=== PATIENT | female | born 1990 | race Hispanic/Latino ===

== ENCOUNTER → 2021-01-16 06:36 | Outpatient (CLI) | payer OTHER, SELFPAY ==
--- NOTE | 2021-01-16 | DI.MRI.S_ITS ---
PROCEDURE: MR LUMBAR SPINE WO CON INDICATIONS: Low back pain TECHNIQUE: Noncontrast sagittal T1 spin echo and T2 fast echo, sagittal STIR, axial T1 and T2 fast spin echo through the lumbar spine. In cases with scoliosis, additional coronal T2 fast spin echo may be performed. COMPARISON: None. FINDINGS: Image quality: Excellent. Alignment and Curvature: There is normal bony alignment. Bone Marrow: Marrow is of normal overall signal. No acute vertebral body compression fractures. Spinal Cord: Conus medullaris terminates at the normal level. Visualized cord demonstrates normal signal and size. Paraspinous Soft Tissues: No paravertebral masses. T12-L1: Normal appearance. L1-L2: Normal appearance. L2-L3: Normal appearance. L3-L4: Normal appearance. L4-L5: Disc desiccation and disc height loss. Circumferential disc bulge flattens the ventral thecal sac without mass effect upon the traversing L5 nerve roots. No neural foraminal stenosis. Mild facet hypertrophy. L5-S1: Disc desiccation and disc height loss. Diffuse disc bulge with a superimposed disc extrusion spanning the central, right paracentral, and right subarticular zones. The total volume of extruded disc material measures approximately 0.9 x 1.7 centimeters in maximum axial dimension and 1.3 centimeters craniocaudal. Extruded disc material significantly displaces and possibly impinges upon the descending right S1 nerve roots in the right subarticular zone (series 6, image 16). Foraminal components of the disc bulge contribute to trace neural foraminal stenosis. IMPRESSION: [id number] disc extrusion at L5-S1 producing suspected impingement of the right S1 nerve roots. Dictated by: Ed Ward M.D. on 01/16/2021 at 8:22 Approved by: Ed Ward M.D. on 01/16/2021 at 8:25
== END ==
PROVIDERS: PCP Nurse Practitioner Family; Referring Provider Nurse Practitioner Family; Visit Provider Nurse Practitioner Family
DX: M51.27 Other intervertebral disc displacement, lumbosacral region (principal)
CPT/HCPCS: 72148

== ENCOUNTER 2021-01-25 13:30 | Outpatient (RCR) | payer OTHER, SELFPAY ==
--- NOTE | 2020-11-23 16:00 | PT.OIE ---
Current Diagnoses Sciatica, unspecified side (11/23/20) Pelvic and perineal pain (11/23/20) Past Medical History (Last Updated 04/19/20 @ 16:25 by NATHANIEL Falcon) Anxiety GERD (gastroesophageal reflux disease) Obesity (BMI 30-39.9) (Unknown) Obstructive sleep apnea (~03/2020) Snoring (~2018) Tobacco use disorder Type 2 diabetes mellitus Visit Care Team Role Provider Type NATHANIEL Soto Attending Provider Non-Staff Primary Care Provider Referring Provider Specialty: [facility] Address: [address] [place] [address] GISELLEPRAVIN [place], [place], [facility] Email: Physical Therapy Initial Evaluation PT-OP-A Visit Information Start: 11/23/20 07:28 Freq: Status: Active Protocol: Document 11/23/20 09:00 AMB (Rec: 11/23/20 10:11 AMB [id number]) Out-Patient Physical Therapy Visit Information Visit Information Visit Type Initial Evaluation Visit Start Time 09:00 Visit Stop Time 09:45 Total Visit Minutes 45 Visit Number 1 PT-OP-B Current Condition Start: 11/23/20 07:28 Freq: Status: Active Protocol: Document 11/23/20 09:00 AMB (Rec: 11/23/20 09:29 AMB [id number]) Current Condition History of Current Condition Onset Date 17 months ago Current Complaints R sided sciatica History of Current Condition Pain started during beginning of second trimester- then put on bed rest due to pre-eclampsia- gotten worse since then. Chiropractor helps for a few days- standing up straight, picking up daughter, leaning over crib, extended sitting (driving) all increase the pain. Since the chiropractor pain is on the right side. Lots of weight gain during and had bariatric sleeve 4 months ago. Treatment Goals Patient/Caregiver Goals Reduce pain so she care for her daughter without pain Prior Functional Status Baseline Function- ADL's Independent Baseline Function- Mobility Independent Current Functional Impairments (Reported) Functional Limitations- ADL's Limited in bending forward due to pain, difficulty dressing daughter, putting her in her crib Personal Factors Other Personal Factors That May Effect Pt works from home (on couch/ Therapy/Recovery poor ergonomics), is in and gone a lot PT-OP-J Posture/Palpation/Skin Start: 11/23/20 07:28 Freq: Status: Active Protocol: Document 11/23/20 09:00 AMB (Rec: 11/26/20 15:39 AMB [email or web address]) Posture Evaluation Comments Posture Comments stands with genu recurvatum, posterior pelvic tilt PT-OP-K Range of Motion Start: 11/23/20 07:28 Freq: Status: Active Protocol: Document 11/23/20 09:00 AMB (Rec: 11/26/20 15:39 AMB [email or web address]) Lumbar Spine Range of Motion Lumbar Spine Active Degrees Testing Position Standing Flexion 30 Extension 25 Lateral Flexion Left 30 Lateral Flexion Right 30 ROM Limitations Pain PT-OP-M Strength Start: 11/23/20 07:28 Freq: Status: Active Protocol: Document 11/23/20 09:00 AMB (Rec: 11/26/20 15:39 AMB [email or web address]) Hip Strength Hip Manual Muscle Testing Right Flexion (L2) 4 Good Extension (S1) 4 Good Abduction 4 Good Adduction 4 Good Left Flexion (L2) 4 Good Extension (S1) 4 Good Abduction 4 Good Adduction 4 Good PT-OP-Q Treatments Start: 11/23/20 07:28 Freq: Status: Active Protocol: Document 11/23/20 09:00 AMB (Rec: 11/26/20 15:39 AMB [email or web address]) Therapeutic Exercises Supine Exercises 2 Supine Exercise Name piriformis stretch 1 Supine Exercise Name sciatic nerve glide Prone Exercises 1 Prone Exercise Name on forearms Comments decreases pain PT-OP-T Assessment and Plan Start: 11/23/20 07:28 Freq: Status: Active Protocol: Document 11/23/20 09:00 AMB (Rec: 11/30/20 09:11 AMB [email or web address]) Physical Therapy Assessment Rehab Potential Rehabilitation Potential Good Evaluation Complexity Number of Personal Factors/Comorbidities 1-2 Number of Body Systems Impaired 4 or More Clinical Presentation at Evaluation Evolving Impairments Impairments Functional Activities,Pain, Posture,Strength Goals Three Impairment Activity tolerance Short Term Goal (STG) Leanna will sit for one hour without an increase in baseline pain. STG Duration 4 weeks Assembler Dc Field Ring Goal (LTG) Leanna will molded goods spot picker her daughter from the floor without an increase in baseline pain. LTG Duration 8 weeks Two Impairment HEP Short Term Goal (STG) Leanna will be independent and consistent with her HEP for core stability and lumbar flexibility. STG Duration 4 weeks One Impairment ROM Short Term Goal (STG) Leanna will improve her lumbar ROM flexion to 50 degrees. STG Duration 4 weeks Assessment Summary Assessment Leanna attends PT with continued sciatica that developed during . Previous care associate helped, but the pain comes back. She has difficulty bending forward to care for her daughter, with limited lumbar flexion due to pain. She has poor posture with posterior pelvic tilt in standing, likely to help with stabilization but that continues to exacerbate her pain. She will benefit from core stabilization and gentle nerve mobilization to improve her range of motion so that she can take care of her daughter without pain. Physical Therapy Plan Frequency and Duration Frequency of Treatment 2x/Week Duration of Treatment 8 weeks Plan of Care Start Date 11/23/20 Plan of Care End Date 01/18/21 Therapeutic Interventions Therapeutic Interventions Home Exercise Program,Joint Mobilizations,Manual Therapy, Neuromuscular Re-education, Self-Care/Home Management, Therapeutic Activities, Therapeutic Exercises Modalities Cold Pack/Ice Massage,Electric Stimulation,Hot Packs Next Visit Focus/Plan Next Note Type Treatment Note Next Visit Plan Progress HEP- core stability- decreasing sciatic tension
--- NOTE | 2020-11-23 16:00 | PT.OPPOC ---
Physical, Occupational & Speech Therapy At [facility] Current Diagnoses Sciatica, unspecified side (11/23/20) Pelvic and perineal pain (11/23/20) Visit Care Team Role Provider Type NATHANIEL Soto Attending Provider Non-Staff Primary Care Provider Referring Provider Specialty: [facility] [place] [place], [facility] Email: Plan Of Care PT-OP-T Assessment and Plan Start: 11/23/20 07:28 Freq: Status: Active Protocol: Document 11/23/20 09:00 AMB (Rec: 11/30/20 09:11 AMB [email or web address]) Physical Therapy Assessment Rehab Potential Rehabilitation Potential Good Evaluation Complexity Number of Personal Factors/Comorbidities 1-2 Number of Body Systems Impaired 4 or More Clinical Presentation at Evaluation Evolving Impairments Impairments Functional Activities,Pain, Posture,Strength Goals Three Impairment Activity tolerance Short Term Goal (STG) Leanna will sit for one hour without an increase in baseline pain. STG Duration 4 weeks Shelter Goal (LTG) Leanna will flower picker her daughter from the floor without an increase in baseline pain. LTG Duration 8 weeks Two Impairment HEP Short Term Goal (STG) Leanna will be independent and consistent with her HEP for core stability and lumbar flexibility. STG Duration 4 weeks One Impairment ROM Short Term Goal (STG) Leanna will improve her lumbar ROM flexion to 50 degrees. STG Duration 4 weeks Assessment Summary Assessment Leanna attends PT with continued sciatica that developed during . Previous day care home provider helped, but the pain comes back. She has difficulty bending forward to care for her daughter, with limited lumbar flexion due to pain. She has poor posture with posterior pelvic tilt in standing, likely to help with stabilization but that continues to exacerbate her pain. She will benefit from core stabilization and gentle nerve mobilization to improve her range of motion so that she can take care of her daughter without pain. Physical Therapy Plan Frequency and Duration Frequency of Treatment 2x/Week Duration of Treatment 8 weeks Plan of Care Start Date 11/23/20 Plan of Care End Date 01/18/21 Therapeutic Interventions Therapeutic Interventions Home Exercise Program,Joint Mobilizations,Manual Therapy, Neuromuscular Re-education, Self-Care/Home Management, Therapeutic Activities, Therapeutic Exercises Modalities Cold Pack/Ice Massage,Electric Stimulation,Hot Packs Next Visit Focus/Plan Next Note Type Treatment Note Next Visit Plan Progress HEP- core stability- decreasing sciatic tension Plan of Care Dates Plan of Care Start Date 11/23/20 Plan of Care End Date 01/18/21 Electronically Signed by: Johana Araya, PT 11/30/20 0912 Please Sign and Return: I have reviewed this Plan of Care and certify that the skilled therapy services above are required to meet the patient?s needs. Physician Signature Date Printed Name and Credentials Clinical Instructor Signature Printed Name and Credentials
--- NOTE | 2020-12-16 11:44 | PT.OTN ---
Current Diagnoses Sciatica, unspecified side (12/16/20) Pelvic and perineal pain (12/16/20) Physical Therapy Treatment Note PT-OP-A Visit Information Start: 11/23/20 07:28 Freq: Status: Active Protocol: Document 12/16/20 09:00 AMB (Rec: 12/16/20 11:44 AMB [email or web address]) Out-Patient Physical Therapy Visit Information Visit Information Visit Type Treatment Note Visit Start Time 09:00 Visit Stop Time 09:45 Total Visit Minutes 45 Visit Number 2 PT-OP-B Current Condition Start: 11/23/20 07:28 Freq: Status: Active Protocol: Document 11/23/20 09:00 AMB (Rec: 11/23/20 09:29 AMB [id number]) Current Condition History of Current Condition Onset Date 17 months ago Current Complaints R sided sciatica History of Current Condition Pain started during beginning of second trimester- then put on bed rest due to pre-eclampsia- gotten worse since then. Chiropractor helps for a few days- standing up straight, picking up daughter, leaning over crib, extended sitting (driving) all increase the pain. Since the chiropractor pain is on the right side. Lots of weight gain during and had bariatric sleeve 4 months ago. Treatment Goals Patient/Caregiver Goals Reduce pain so she care for her daughter without pain Prior Functional Status Baseline Function- ADL's Independent Baseline Function- Mobility Independent Current Functional Impairments (Reported) Functional Limitations- ADL's Limited in bending forward due to pain, difficulty dressing daughter, putting her in her crib Personal Factors Other Personal Factors That May Effect Pt works from home (on couch/ Therapy/Recovery poor ergonomics), is in and gone a lot PT-OP-C Subjective Start: 11/23/20 07:28 Freq: Status: Active Protocol: Document 12/16/20 09:00 AMB (Rec: 12/16/20 11:44 AMB [email or web address]) OP-PT Subjective Patient Comments Patient Comments Pt has been doing her stretches, she started doing personal training at the gym. Does notice she has to be very careful with lunges and deep piriformis stretch. PT-OP-J Posture/Palpation/Skin Start: 11/23/20 07:28 Freq: Status: Active Protocol: Document 11/23/20 09:00 AMB (Rec: 11/26/20 15:39 AMB [email or web address]) Posture Evaluation Comments Posture Comments stands with genu recurvatum, posterior pelvic tilt PT-OP-K Range of Motion Start: 11/23/20 07:28 Freq: Status: Active Protocol: Document 11/23/20 09:00 AMB (Rec: 11/26/20 15:39 AMB [email or web address]) Lumbar Spine Range of Motion Lumbar Spine Active Degrees Testing Position Standing Flexion 30 Extension 25 Lateral Flexion Left 30 Lateral Flexion Right 30 ROM Limitations Pain PT-OP-M Strength Start: 11/23/20 07:28 Freq: Status: Active Protocol: Document 11/23/20 09:00 AMB (Rec: 11/26/20 15:39 AMB [email or web address]) Hip Strength Hip Manual Muscle Testing Right Flexion (L2) 4 Good Extension (S1) 4 Good Abduction 4 Good Adduction 4 Good Left Flexion (L2) 4 Good Extension (S1) 4 Good Abduction 4 Good Adduction 4 Good PT-OP-Q Treatments Start: 11/23/20 07:28 Freq: Status: Active Protocol: Document 12/16/20 09:00 AMB (Rec: 12/16/20 11:44 AMB [email or web address]) Gym Equipment Therapeutic Ball 1 Exercise Details 65cm Body Position Sitting Reps/Duration 10 min Comments march with TA, leg extension ( sciatic n glide), pelvic tilt Manual Therapy Treatment Soft Tissue Mobilization 1 Body Location R piriformis Mobilization Type Myofascial Release Intensity/Depth Moderate Body Position Sidelying PT-OP-T Assessment and Plan Start: 11/23/20 07:28 Freq: Status: Active Protocol: Document 12/16/20 09:00 AMB (Rec: 12/16/20 11:44 AMB [email or web address]) Physical Therapy Assessment Goals Three Impairment Activity tolerance Short Term Goal (STG) Leanna will sit for one hour without an increase in baseline pain. STG Duration 4 weeks Fdc Goal (LTG) Leanna will package pick up her daughter from the floor without an increase in baseline pain. LTG Duration 8 weeks Two Impairment HEP Short Term Goal (STG) Leanna will be independent and consistent with her HEP for core stability and lumbar flexibility. STG Duration 4 weeks One Impairment ROM Short Term Goal (STG) Leanna will improve her lumbar ROM flexion to 50 degrees. STG Duration 4 weeks Assessment Summary Assessment Leanna had foot numbness today which she states she hasn't previously noticed. Encouraged to be careful with personal training ok to go to the edge, but try not to do exercises that exacerbate pain /numbness. Physical Therapy Plan Next Visit Focus/Plan Next Visit Plan Reassess seated sciatic n glide (HEP), begin work on core stability.
--- NOTE | 2020-12-21 16:29 | PT.OTN ---
Current Diagnoses Sciatica, unspecified side (12/21/20) Pelvic and perineal pain (12/21/20) Physical Therapy Treatment Note PT-OP-A Visit Information Start: 11/23/20 07:28 Freq: Status: Active Protocol: Document 12/21/20 13:30 AMB (Rec: 12/21/20 14:15 AMB [id number]) Out-Patient Physical Therapy Visit Information Visit Information Visit Type Treatment Note Visit Start Time 13:30 Visit Stop Time 14:15 Total Visit Minutes 45 Visit Number 3 PT-OP-B Current Condition Start: 11/23/20 07:28 Freq: Status: Active Protocol: Document 11/23/20 09:00 AMB (Rec: 11/23/20 09:29 AMB [id number]) Current Condition History of Current Condition Onset Date 17 months ago Current Complaints R sided sciatica History of Current Condition Pain started during beginning of second trimester- then put on bed rest due to pre-eclampsia- gotten worse since then. Chiropractor helps for a few days- standing up straight, picking up daughter, leaning over crib, extended sitting (driving) all increase the pain. Since the chiropractor pain is on the right side. Lots of weight gain during and had bariatric sleeve 4 months ago. Treatment Goals Patient/Caregiver Goals Reduce pain so she care for her daughter without pain Prior Functional Status Baseline Function- ADL's Independent Baseline Function- Mobility Independent Current Functional Impairments (Reported) Functional Limitations- ADL's Limited in bending forward due to pain, difficulty dressing daughter, putting her in her crib Personal Factors Other Personal Factors That May Effect Pt works from home (on couch/ Therapy/Recovery poor ergonomics), is in and gone a lot PT-OP-C Subjective Start: 11/23/20 07:28 Freq: Status: Active Protocol: Document 12/21/20 13:30 AMB (Rec: 12/21/20 14:15 AMB [id number]) OP-PT Subjective Patient Comments Patient Comments Pt is continuing to feel foot numbness with hamstring stretch. PT-OP-J Posture/Palpation/Skin Start: 11/23/20 07:28 Freq: Status: Active Protocol: Document 11/23/20 09:00 AMB (Rec: 11/26/20 15:39 AMB [email or web address]) Posture Evaluation Comments Posture Comments stands with genu recurvatum, posterior pelvic tilt PT-OP-K Range of Motion Start: 11/23/20 07:28 Freq: Status: Active Protocol: Document 11/23/20 09:00 AMB (Rec: 11/26/20 15:39 AMB [email or web address]) Lumbar Spine Range of Motion Lumbar Spine Active Degrees Testing Position Standing Flexion 30 Extension 25 Lateral Flexion Left 30 Lateral Flexion Right 30 ROM Limitations Pain PT-OP-M Strength Start: 11/23/20 07:28 Freq: Status: Active Protocol: Document 11/23/20 09:00 AMB (Rec: 11/26/20 15:39 AMB [email or web address]) Hip Strength Hip Manual Muscle Testing Right Flexion (L2) 4 Good Extension (S1) 4 Good Abduction 4 Good Adduction 4 Good Left Flexion (L2) 4 Good Extension (S1) 4 Good Abduction 4 Good Adduction 4 Good PT-OP-Q Treatments Start: 11/23/20 07:28 Freq: Status: Active Protocol: Document 12/21/20 13:30 AMB (Rec: 12/21/20 16:28 AMB [id number]) Therapeutic Exercises Supine Exercises 4 Supine Exercise Name piriformis stretch Reps/Minutes 30x2 3 Supine Exercise Name double bent leg lift Reps/Minutes 10 Comments with TA 2 Supine Exercise Name SLR with TA 1 Supine Exercise Name hamstring contract relax- increased sx Sidelying Exercises 1 Sidelying Exercise Name hip abd Reps/Minutes 10 Comments added side plank no increased sx Other Exercises 1 Other Exercise Name cat cow Reps/Minutes 20 Manual Therapy Treatment Manual Techniques 1 Type R LE distraction PT-OP-T Assessment and Plan Start: 11/23/20 07:28 Freq: Status: Active Protocol: Document 12/21/20 13:30 AMB (Rec: 12/21/20 16:28 AMB [id number]) Physical Therapy Assessment Assessment Summary Assessment Pt continues to have R foot numbness with hamstring/ sciatic stretches. Working into spinal flexion in quadruped is ok, but also noted numbness in bilateral hands when waking up from sleeping that is new onset. Physical Therapy Plan Next Visit Focus/Plan Next Note Type Treatment Note Next Visit Plan Follow up on cat/cow
--- NOTE | 2021-01-04 14:21 | PT.OTN ---
Current Diagnoses Sciatica, unspecified side (01/04/21) Pelvic and perineal pain (01/04/21) Physical Therapy Treatment Note PT-OP-A Visit Information Start: 11/23/20 07:28 Freq: Status: Active Protocol: Document 01/04/21 13:30 AMB (Rec: 01/04/21 14:21 AMB [id number]) Out-Patient Physical Therapy Visit Information Visit Information Visit Type Treatment Note Visit Start Time 13:30 Visit Stop Time 14:15 Total Visit Minutes 45 Visit Number 4 PT-OP-B Current Condition Start: 11/23/20 07:28 Freq: Status: Active Protocol: Document 11/23/20 09:00 AMB (Rec: 11/23/20 09:29 AMB [id number]) Current Condition History of Current Condition Onset Date 17 months ago Current Complaints R sided sciatica History of Current Condition Pain started during beginning of second trimester- then put on bed rest due to pre-eclampsia- gotten worse since then. Chiropractor helps for a few days- standing up straight, picking up daughter, leaning over crib, extended sitting (driving) all increase the pain. Since the chiropractor pain is on the right side. Lots of weight gain during and had bariatric sleeve 4 months ago. Treatment Goals Patient/Caregiver Goals Reduce pain so she care for her daughter without pain Prior Functional Status Baseline Function- ADL's Independent Baseline Function- Mobility Independent Current Functional Impairments (Reported) Functional Limitations- ADL's Limited in bending forward due to pain, difficulty dressing daughter, putting her in her crib Personal Factors Other Personal Factors That May Effect Pt works from home (on couch/ Therapy/Recovery poor ergonomics), is in and gone a lot PT-OP-C Subjective Start: 11/23/20 07:28 Freq: Status: Active Protocol: Document 01/04/21 13:30 AMB (Rec: 01/04/21 14:21 AMB [id number]) OP-PT Subjective Patient Comments Patient Comments Pt is continuing to notice arm numbness, did have X-ray and is waiting for results, and waiting for scheduling for MRI . PT-OP-J Posture/Palpation/Skin Start: 11/23/20 07:28 Freq: Status: Active Protocol: Document 11/23/20 09:00 AMB (Rec: 11/26/20 15:39 AMB [email or web address]) Posture Evaluation Comments Posture Comments stands with genu recurvatum, posterior pelvic tilt PT-OP-K Range of Motion Start: 11/23/20 07:28 Freq: Status: Active Protocol: Document 11/23/20 09:00 AMB (Rec: 11/26/20 15:39 AMB [email or web address]) Lumbar Spine Range of Motion Lumbar Spine Active Degrees Testing Position Standing Flexion 30 Extension 25 Lateral Flexion Left 30 Lateral Flexion Right 30 ROM Limitations Pain PT-OP-M Strength Start: 11/23/20 07:28 Freq: Status: Active Protocol: Document 11/23/20 09:00 AMB (Rec: 11/26/20 15:39 AMB [email or web address]) Hip Strength Hip Manual Muscle Testing Right Flexion (L2) 4 Good Extension (S1) 4 Good Abduction 4 Good Adduction 4 Good Left Flexion (L2) 4 Good Extension (S1) 4 Good Abduction 4 Good Adduction 4 Good PT-OP-Q Treatments Start: 11/23/20 07:28 Freq: Status: Active Protocol: Document 01/04/21 13:30 AMB (Rec: 01/04/21 14:21 AMB [id number]) Therapeutic Exercises Supine Exercises 4 Supine Exercise Name piriformis stretch Reps/Minutes 30x2 2 Supine Exercise Name SLR with TA Sidelying Exercises 1 Sidelying Exercise Name hip abd Reps/Minutes 10 Comments increased numbness Other Exercises 2 Other Exercise Name bird dog Reps/Minutes 20 1 Other Exercise Name cat cow Reps/Minutes 20 Manual Therapy Treatment Soft Tissue Mobilization 1 Body Location R piriformis. lumbar paraspinals Mobilization Type Myofascial Release Intensity/Depth Moderate Body Position Sidelying PT-OP-T Assessment and Plan Start: 11/23/20 07:28 Freq: Status: Active Protocol: Document 01/04/21 13:30 AMB (Rec: 01/04/21 14:21 AMB [id number]) Physical Therapy Assessment Assessment Summary Assessment Pt showed significantly more numbness at today's visit. Exercises that did not previously cause numbness did so today. Encouarged to avoid lifts at the gym and to follow up with MD. Physical Therapy Plan Next Visit Focus/Plan Next Note Type Treatment Note Next Visit Plan Follow up on upcoming imaging
--- NOTE | 2021-01-11 11:02 | PT.OTN ---
Current Diagnoses Sciatica, unspecified side (01/11/21) Pelvic and perineal pain (01/11/21) Physical Therapy Treatment Note PT-OP-A Visit Information Start: 11/23/20 07:28 Freq: Status: Active Protocol: Document 01/11/21 09:00 AMB (Rec: 01/11/21 11:00 AMB [id number]) Out-Patient Physical Therapy Visit Information Visit Information Visit Type Treatment Note Visit Note pt arrived 10 min late Visit Start Time 09:10 Visit Stop Time 09:40 Total Visit Minutes 35 Visit Number 5 PT-OP-B Current Condition Start: 11/23/20 07:28 Freq: Status: Active Protocol: Document 11/23/20 09:00 AMB (Rec: 11/23/20 09:29 AMB [id number]) Current Condition History of Current Condition Onset Date 17 months ago Current Complaints R sided sciatica History of Current Condition Pain started during beginning of second trimester- then put on bed rest due to pre-eclampsia- gotten worse since then. Chiropractor helps for a few days- standing up straight, picking up daughter, leaning over crib, extended sitting (driving) all increase the pain. Since the chiropractor pain is on the right side. Lots of weight gain during and had bariatric sleeve 4 months ago. Treatment Goals Patient/Caregiver Goals Reduce pain so she care for her daughter without pain Prior Functional Status Baseline Function- ADL's Independent Baseline Function- Mobility Independent Current Functional Impairments (Reported) Functional Limitations- ADL's Limited in bending forward due to pain, difficulty dressing daughter, putting her in her crib Personal Factors Other Personal Factors That May Effect Pt works from home (on couch/ Therapy/Recovery poor ergonomics), is in and gone a lot PT-OP-C Subjective Start: 11/23/20 07:28 Freq: Status: Active Protocol: Document 01/11/21 11:01 AMB (Rec: 01/11/21 11:02 AMB [id number]) OP-PT Subjective Patient Comments Patient Comments Pt had Xray per her report it showed mild disc degeneration, MRI scheduled for next week. PT-OP-J Posture/Palpation/Skin Start: 11/23/20 07:28 Freq: Status: Active Protocol: Document 11/23/20 09:00 AMB (Rec: 11/26/20 15:39 AMB [email or web address]) Posture Evaluation Comments Posture Comments stands with genu recurvatum, posterior pelvic tilt PT-OP-K Range of Motion Start: 11/23/20 07:28 Freq: Status: Active Protocol: Document 11/23/20 09:00 AMB (Rec: 11/26/20 15:39 AMB [email or web address]) Lumbar Spine Range of Motion Lumbar Spine Active Degrees Testing Position Standing Flexion 30 Extension 25 Lateral Flexion Left 30 Lateral Flexion Right 30 ROM Limitations Pain PT-OP-M Strength Start: 11/23/20 07:28 Freq: Status: Active Protocol: Document 11/23/20 09:00 AMB (Rec: 11/26/20 15:39 AMB [email or web address]) Hip Strength Hip Manual Muscle Testing Right Flexion (L2) 4 Good Extension (S1) 4 Good Abduction 4 Good Adduction 4 Good Left Flexion (L2) 4 Good Extension (S1) 4 Good Abduction 4 Good Adduction 4 Good PT-OP-Q Treatments Start: 11/23/20 07:28 Freq: Status: Active Protocol: Document 01/11/21 11:01 AMB (Rec: 01/11/21 11:02 AMB [id number]) Therapeutic Exercises Supine Exercises 4 Supine Exercise Name piriformis stretch Reps/Minutes 30x2 3 Supine Exercise Name double bent leg lift Reps/Minutes 10 Comments with TA 2 Supine Exercise Name SLR with TA Manual Therapy Treatment Soft Tissue Mobilization 1 Body Location R piriformis. lumbar paraspinals Mobilization Type Myofascial Release Intensity/Depth Moderate Body Position Sidelying Manual Traction Lumbar Body Position Hooklying Comments relieves sx, but can get numb if leg outside of neutral PT-OP-T Assessment and Plan Start: 11/23/20 07:28 Freq: Status: Active Protocol: Document 01/11/21 09:00 AMB (Rec: 01/11/21 11:00 AMB [id number]) Physical Therapy Assessment Assessment Summary Assessment Pt continues to have numbness with hip flexion and extension Physical Therapy Plan Next Visit Focus/Plan Next Note Type Treatment Note Next Visit Plan Follow up on upcoming imaging
--- NOTE | 2021-01-18 16:01 | PT.OTN ---
Current Diagnoses Sciatica, unspecified side (01/18/21) Pelvic and perineal pain (01/18/21) Physical Therapy Treatment Note PT-OP-A Visit Information Start: 11/23/20 07:28 Freq: Status: Active Protocol: Document 01/18/21 13:30 AMB (Rec: 01/18/21 16:01 AMB [email or web address]) Out-Patient Physical Therapy Visit Information Visit Information Visit Type Treatment Note Visit Note pt 15 min late Visit Start Time 13:45 Visit Stop Time 14:15 Total Visit Minutes 30 Visit Number 6 PT-OP-B Current Condition Start: 11/23/20 07:28 Freq: Status: Active Protocol: Document 11/23/20 09:00 AMB (Rec: 11/23/20 09:29 AMB [id number]) Current Condition History of Current Condition Onset Date 17 months ago Current Complaints R sided sciatica History of Current Condition Pain started during beginning of second trimester- then put on bed rest due to pre-eclampsia- gotten worse since then. Chiropractor helps for a few days- standing up straight, picking up daughter, leaning over crib, extended sitting (driving) all increase the pain. Since the chiropractor pain is on the right side. Lots of weight gain during and had bariatric sleeve 4 months ago. Treatment Goals Patient/Caregiver Goals Reduce pain so she care for her daughter without pain Prior Functional Status Baseline Function- ADL's Independent Baseline Function- Mobility Independent Current Functional Impairments (Reported) Functional Limitations- ADL's Limited in bending forward due to pain, difficulty dressing daughter, putting her in her crib Personal Factors Other Personal Factors That May Effect Pt works from home (on couch/ Therapy/Recovery poor ergonomics), is in and gone a lot PT-OP-C Subjective Start: 11/23/20 07:28 Freq: Status: Active Protocol: Document 01/18/21 13:30 AMB (Rec: 01/18/21 16:01 AMB [email or web address]) OP-PT Subjective Patient Comments Patient Comments Pt got MRI results from this morning and comes in with questions regarding the plan, re: surgery, continuing exercise to meet her weight loss golas without injuring her back further. PT-OP-J Posture/Palpation/Skin Start: 11/23/20 07:28 Freq: Status: Active Protocol: Document 11/23/20 09:00 AMB (Rec: 11/26/20 15:39 AMB [email or web address]) Posture Evaluation Comments Posture Comments stands with genu recurvatum, posterior pelvic tilt PT-OP-K Range of Motion Start: 11/23/20 07:28 Freq: Status: Active Protocol: Document 11/23/20 09:00 AMB (Rec: 11/26/20 15:39 AMB [email or web address]) Lumbar Spine Range of Motion Lumbar Spine Active Degrees Testing Position Standing Flexion 30 Extension 25 Lateral Flexion Left 30 Lateral Flexion Right 30 ROM Limitations Pain PT-OP-M Strength Start: 11/23/20 07:28 Freq: Status: Active Protocol: Document 11/23/20 09:00 AMB (Rec: 11/26/20 15:39 AMB [email or web address]) Hip Strength Hip Manual Muscle Testing Right Flexion (L2) 4 Good Extension (S1) 4 Good Abduction 4 Good Adduction 4 Good Left Flexion (L2) 4 Good Extension (S1) 4 Good Abduction 4 Good Adduction 4 Good PT-OP-Q Treatments Start: 11/23/20 07:28 Freq: Status: Active Protocol: Document 01/18/21 13:30 AMB (Rec: 01/18/21 16:01 AMB [email or web address]) Self-Care/Home Management Treatment Education Other Education Extensive discussion of surgical/exercise options, considerations of surgery in that likely she would need help with childcare to avoid bend/lift/twist post surgery. Reassured pt to continue with cardio, but keep spine in neutral for now, avoiding flexion activities. PT-OP-T Assessment and Plan Start: 11/23/20 07:28 Freq: Status: Active Protocol: Document 01/18/21 13:30 AMB (Rec: 01/18/21 16:01 AMB [email or web address]) Physical Therapy Assessment Assessment Summary Assessment Pt tearful over MRI results, not being able to exercise, childcare after a possible surgery. Encouraged pt to follow up with orthopedics, pause the personal banking assistant for now, and just focus on cardio and gentle core progression. Physical Therapy Plan Next Visit Focus/Plan Next Visit Plan Consider d/c if pt pursuing surgery, plan on giving specifics of exercises she can do for HEP
--- NOTE | 2021-01-25 15:00 | PT.OTN ---
Current Diagnoses Sciatica, unspecified side (01/25/21) Pelvic and perineal pain (01/25/21) Physical Therapy Treatment Note PT-OP-A Visit Information Start: 11/23/20 07:28 Freq: Status: Active Protocol: Document 01/25/21 13:30 AMB (Rec: 02/19/21 08:21 AMB [email or web address]) Out-Patient Physical Therapy Visit Information Visit Information Visit Type Treatment Note Visit Start Time 13:30 Visit Stop Time 14:15 Total Visit Minutes 45 Visit Number 7 PT-OP-B Current Condition Start: 11/23/20 07:28 Freq: Status: Active Protocol: Document 11/23/20 09:00 AMB (Rec: 11/23/20 09:29 AMB [id number]) Current Condition History of Current Condition Onset Date 17 months ago Current Complaints R sided sciatica History of Current Condition Pain started during beginning of second trimester- then put on bed rest due to pre-eclampsia- gotten worse since then. Chiropractor helps for a few days- standing up straight, picking up daughter, leaning over crib, extended sitting (driving) all increase the pain. Since the chiropractor pain is on the right side. Lots of weight gain during and had bariatric sleeve 4 months ago. Treatment Goals Patient/Caregiver Goals Reduce pain so she care for her daughter without pain Prior Functional Status Baseline Function- ADL's Independent Baseline Function- Mobility Independent Current Functional Impairments (Reported) Functional Limitations- ADL's Limited in bending forward due to pain, difficulty dressing daughter, putting her in her crib Personal Factors Other Personal Factors That May Effect Pt works from home (on couch/ Therapy/Recovery poor ergonomics), is in and gone a lot PT-OP-C Subjective Start: 11/23/20 07:28 Freq: Status: Active Protocol: Document 01/25/21 13:30 AMB (Rec: 02/19/21 08:21 AMB [email or web address]) OP-PT Subjective Patient Comments Patient Comments Pt is considering surgery vs injections and since she has had little improvement in PT she is ready to be discharged, but instead of being discharged would prefer to be put on hold for a month. PT-OP-J Posture/Palpation/Skin Start: 11/23/20 07:28 Freq: Status: Active Protocol: Document 11/23/20 09:00 AMB (Rec: 11/26/20 15:39 AMB [email or web address]) Posture Evaluation Comments Posture Comments stands with genu recurvatum, posterior pelvic tilt PT-OP-K Range of Motion Start: 11/23/20 07:28 Freq: Status: Active Protocol: Document 11/23/20 09:00 AMB (Rec: 11/26/20 15:39 AMB [email or web address]) Lumbar Spine Range of Motion Lumbar Spine Active Degrees Testing Position Standing Flexion 30 Extension 25 Lateral Flexion Left 30 Lateral Flexion Right 30 ROM Limitations Pain PT-OP-M Strength Start: 11/23/20 07:28 Freq: Status: Active Protocol: Document 11/23/20 09:00 AMB (Rec: 11/26/20 15:39 AMB [email or web address]) Hip Strength Hip Manual Muscle Testing Right Flexion (L2) 4 Good Extension (S1) 4 Good Abduction 4 Good Adduction 4 Good Left Flexion (L2) 4 Good Extension (S1) 4 Good Abduction 4 Good Adduction 4 Good PT-OP-Q Treatments Start: 11/23/20 07:28 Freq: Status: Active Protocol: Document 01/25/21 13:30 AMB (Rec: 02/19/21 08:21 AMB [email or web address]) Therapeutic Exercises Supine Exercises 4 Supine Exercise Name piriformis stretch Reps/Minutes 30x2 2 Supine Exercise Name SLR with TA Reps/Minutes 10 Prone Exercises 1 Prone Exercise Name prone press up Comments difficult with UE numbness Sidelying Exercises 1 Sidelying Exercise Name hip abd SLR Reps/Minutes 10 Self-Care/Home Management Treatment Education Other Education Extensive education re the role of cervical spine and UE numbness, surgery vs injections, planning for help with her daughter after surgery to avoid BLT. PT-OP-T Assessment and Plan Start: 11/23/20 07:28 Freq: Status: Active Protocol: Document 01/25/21 13:30 AMB (Rec: 01/25/21 14:14 AMB [id number]) Physical Therapy Assessment Goals Three Impairment Activity tolerance Short Term Goal (STG) Leanna will sit for one hour without an increase in baseline pain. STG Duration NOT MET Signals Analyst Goal (LTG) Leanna will brass pickler her daughter from the floor without an increase in baseline pain. LTG Duration NOT MET Two Impairment HEP Short Term Goal (STG) Leanna will be independent and consistent with her HEP for core stability and lumbar flexibility. STG Duration NoT MET One Impairment ROM Short Term Goal (STG) Leanna will improve her lumbar ROM flexion to 50 degrees. STG Duration NOT MET Assessment Summary Assessment Leanna's symptoms worsened while in physical therapy, so she was encouraged to return to PCP who elected MRI and found a large disc herniation impinging upon a nerve root. Leanna needed further education on surgery vs injections vs continued conservative management, education regarding body mechanics and taking care of her daughter, and education regarding her continued weight loss goals (she had been working with a equestrian trainer fairly [place] and that increased her symptoms considerably). Since she will be pursuing surgery vs injections we will put her case on hold for one month and then discharge if she does not have further need for physical therapy. Physical Therapy Plan Discharge Physical Therapy Discharge Reasons Plateau in Progress
--- NOTE | 2021-02-26 11:49 | PT.OPDS ---
Current Diagnoses Sciatica, unspecified side (01/25/21) Pelvic and perineal pain (01/25/21) Visit Care Team Role Provider Type NATHANIEL Soto Attending Provider Non-Staff Primary Care Provider Referring Provider Specialty: Family Practice Address: [facility] [address] , [place], [address] Email: Visit Number Visit Number 7 Discharge Summary PT-OP-B Current Condition Start: 11/23/20 07:28 Freq: Status: Active Protocol: Document 11/23/20 09:00 AMB (Rec: 11/23/20 09:29 AMB [id number]) Current Condition History of Current Condition Onset Date 17 months ago Current Complaints R sided sciatica History of Current Condition Pain started during beginning of second trimester- then put on bed rest due to pre-eclampsia- gotten worse since then. Chiropractor helps for a few days- standing up straight, picking up daughter, leaning over crib, extended sitting (driving) all increase the pain. Since the chiropractor pain is on the right side. Lots of weight gain during and had bariatric sleeve 4 months ago. Treatment Goals Patient/Caregiver Goals Reduce pain so she care for her daughter without pain Prior Functional Status Baseline Function- ADL's Independent Baseline Function- Mobility Independent Current Functional Impairments (Reported) Functional Limitations- ADL's Limited in bending forward due to pain, difficulty dressing daughter, putting her in her crib Personal Factors Other Personal Factors That May Effect Pt works from home (on couch/ Therapy/Recovery poor ergonomics), is in and gone a lot PT-OP-C Subjective Start: 11/23/20 07:28 Freq: Status: Active Protocol: Document 01/25/21 13:30 AMB (Rec: 02/19/21 08:21 AMB [email or web address]) OP-PT Subjective Patient Comments Patient Comments Pt is considering surgery vs injections and since she has had little improvement in PT she is ready to be discharged, but instead of being discharged would prefer to be put on hold for a month. PT-OP-J Posture/Palpation/Skin Start: 11/23/20 07:28 Freq: Status: Active Protocol: Document 11/23/20 09:00 AMB (Rec: 11/26/20 15:39 AMB [email or web address]) Posture Evaluation Comments Posture Comments stands with genu recurvatum, posterior pelvic tilt PT-OP-K Range of Motion Start: 11/23/20 07:28 Freq: Status: Active Protocol: Document 11/23/20 09:00 AMB (Rec: 11/26/20 15:39 AMB [email or web address]) Lumbar Spine Range of Motion Lumbar Spine Active Degrees Testing Position Standing Flexion 30 Extension 25 Lateral Flexion Left 30 Lateral Flexion Right 30 ROM Limitations Pain PT-OP-M Strength Start: 11/23/20 07:28 Freq: Status: Active Protocol: Document 11/23/20 09:00 AMB (Rec: 11/26/20 15:39 AMB [email or web address]) Hip Strength Hip Manual Muscle Testing Right Flexion (L2) 4 Good Extension (S1) 4 Good Abduction 4 Good Adduction 4 Good Left Flexion (L2) 4 Good Extension (S1) 4 Good Abduction 4 Good Adduction 4 Good PT-OP-T Assessment and Plan Start: 11/23/20 07:28 Freq: Status: Active Protocol: Document 02/26/21 11:48 AMB (Rec: 02/26/21 11:48 AMB [email or web address]) Physical Therapy Assessment Assessment Summary Assessment Pt was placed on hold for one month and has not returned to the clinic in that time, therefore she is discharged. At her last visit she was considering injections vs surgery, as unfortunately her numbness had progressed instead of improved with physical therapy.
== END 2021-03-01 13:36 | disposition home or self-care (01) ==
LOC: PHYS 13:30
PROVIDERS: PCP Nurse Practitioner Family; Referring Provider Nurse Practitioner Family; Visit Provider Nurse Practitioner Family
DX: R10.2 Pelvic and perineal pain (principal); M54.30 Sciatica, unspecified side
CPT/HCPCS: 97110; 97140; 97162; 97535

== ENCOUNTER → 2021-02-02 06:50 | Outpatient (CLI) | payer OTHER, SELFPAY ==
--- NOTE | 2021-02-02 | DI.MRI.S_ITS ---
PROCEDURE: MR CERVICAL SPINE WO CON INDICATIONS: Cervicalgia TECHNIQUE: Noncontrast sagittal T1 spin echo and T2 fast spin echo, sagittal STIR, foraminal oblique sagittal T2 fast spin echo, and axial gradient echo or T2 fast spin echo through the cervical spine. COMPARISON: None. FINDINGS: Image quality: Excellent. Alignment and Curvature: There is loss of normal cervical lordosis, and otherwise normal bony alignment. Bone Marrow: Marrow demonstrates normal overall signal. Minimal reactive signal within the endplates adjacent to the C5-C6 and C6-C7 intervertebral discs. Spinal Cord: Visualized spinal cord has normal size and signal. No cerebellar tonsillar herniation. Paraspinous Soft Tissues: No paravertebral masses. Prevertebral soft tissues are normal in thickness. C2-C3: Normal appearance. C3-C4: Mild facet and uncovertebral hypertrophy bilaterally. No significant canal stenosis. Mild bilateral foraminal stenosis. C4-C5: Mild facet and uncovertebral hypertrophy bilaterally. No canal stenosis. Mild bilateral foraminal stenosis. C5-C6: Normal appearance. C6-C7: Mild disc desiccation and diffuse disc bulge. Mild facet and uncovertebral hypertrophy bilaterally. Mild canal stenosis. Mild right and moderate left foraminal stenosis. C7-T1: Normal appearance. IMPRESSION: 1. Multilevel degenerative disc and facet disease, as well as uncovertebral hypertrophy. 2. Mild multilevel canal stenosis. 3. Multilevel foraminal stenoses, worst at C6-C7 on the left where there is moderate foraminal stenosis. Dictated by: Phyllis Sarabia M.D. on 02/02/2021 at 8:33 Approved by: Phyllis Sarabia M.D. on 02/02/2021 at 8:38
== END ==
PROVIDERS: PCP Nurse Practitioner Family; Referring Provider Nurse Practitioner Family; Visit Provider Family Medicine
DX: M50.323 Other cervical disc degeneration at C6-C7 level (principal); M48.02 Spinal stenosis, cervical region
CPT/HCPCS: 72141

== ENCOUNTER → 2021-07-18 15:38 | Outpatient (CLI) | payer OTHER, SELFPAY ==
--- NOTE | 2021-07-18 | DI.MRI.S_ITS ---
PROCEDURE: MR CERVICAL SPINE WO CON INDICATIONS: LEFT GREATER THAN RIGHT ARM NUMBNESS AND WEAKNESS TECHNIQUE: Noncontrast sagittal T1 spin echo and T2 fast spin echo, sagittal STIR, foraminal oblique sagittal T2 fast spin echo, and axial gradient echo or T2 fast spin echo through the cervical spine. COMPARISON: [facility], MR, MR LUMBAR SPINE WO/W CON, 07/18/2021, 15:53. [facility], MR, MR CERVICAL SPINE WO CON, 02/02/2021, 7:37. FINDINGS: Image quality: Diagnostic, with note made of motion artifact. Alignment and Curvature: There is overall straightening of the normal cervical lordosis. No focal AP alignment abnormality is seen. Bone Marrow: Marrow demonstrates normal overall signal. Spinal Cord: Visualized spinal cord has normal size and signal. No cerebellar tonsillar herniation. Paraspinous Soft Tissues: No paravertebral masses. Prevertebral soft tissues are normal in thickness. C2-C3: Normal appearance. C3-C4: The disc height and disk signal are well-preserved. A mild degree of generalized disc osteophyte complex is seen. Mild to moderate facet hypertrophy is seen. There is moderate left-sided and no significant right-sided neural foraminal narrowing seen. The central canal is widely patent. When comparison is made with the prior images, these findings are similar. C4-C5: The disc height and disk signal are well-preserved. Moderate facet joint hypertrophy is seen. There is moderate left-sided and no right-sided neural foraminal narrowing seen. No central canal narrowing is seen. Stable from the prior study. C5-C6: No significant abnormality is seen. C6-C7: The disc height and disc signal are relatively well preserved. Moderate generalized disc osteophyte complex is seen. Mild facet joint hypertrophy is seen. Moderate bilateral neural foraminal narrowing can be seen, right worse than left. Mild central canal narrowing is seen. When comparison is made with the prior images, these findings are similar. C7-T1: No significant abnormality is seen. IMPRESSION: Multiple levels of premature cervical spine degenerative change are seen, which are worst at the C6-C7 level. The degenerative changes are similar to prior MRI. Dictated by: Keenan Bajwa M.D. on 07/18/2021 at 16:10 Approved by: Keenan Bajwa M.D. on 07/18/2021 at 16:14
--- NOTE | 2021-07-18 | DI.MRI.S_ITS ---
PROCEDURE: MR LUMBAR SPINE WO/W CON INDICATIONS: Other specified postprocedural states TECHNIQUE: Noncontrast sagittal T1 spin echo and T2 fast spin echo, sagittal STIR, axial T1 and T2 fast spin echo through the lumbar spine. In cases with scoliosis, additional coronal T2 fast spin echo may be performed. After the administration of contrast, sagittal and axial T1 spin echo with fat saturation through the lumbar spine. COMPARISON: [facility], MR, MR CERVICAL SPINE WO CON, 07/18/2021, 15:53. [facility], MR, MR LUMBAR SPINE WO CON, 01/16/2021, 7:05. FINDINGS: Image quality: Diagnostic, with note made of motion artifact. Alignment and curvature: There is normal bony alignment. Marrow: Marrow is of normal overall signal. No acute vertebral body compression fractures. No suspicious marrow enhancement. Spinal cord: Conus medullaris terminates at the T12-L1 level. Visualized spinal cord demonstrates normal signal, without suspicious enhancement. Paraspinous soft tissues: No paravertebral masses or abnormal enhancement. T12-L1: Normal appearance. L1-L2: Normal appearance. L2-L3: Normal appearance. L3-L4: Normal appearance. L4-L5: The disc height is well-preserved. Loss of disc signal is seen at this level. Mild generalized disc bulge is seen. There is a focal annular fissure seen posteriorly. Mild to moderate facet hypertrophy is seen. No significant neural foraminal narrowing can be seen. Minimal central canal narrowing is seen. When comparison is made with the prior images, these findings are similar. L5-S1: Mild loss of disc height is seen. Loss of disc signal is seen. Moderate disc bulge is seen, with a central disc extrusion. There is a focal annular fissure seen posteriorly. Interval right hemilaminectomy change can be seen. Mild to moderate facet hypertrophy is seen at this level. There is moderate bilateral neural foraminal narrowing seen. Mild to moderate central canal narrowing is seen. Compared to the prior examination, the volume of the extruded disc material is decreased and the degree of central canal narrowing is clearly improved. IMPRESSION: Improved L5-S1 level compared to the preoperative study, with reduction in the bulk of the disc extrusion and clear improvement in the degree of central canal narrowing. However, extruded disc material is again seen, which may be residual or recurrent. Dictated by: Keenan Bajwa M.D. on 07/18/2021 at 16:14 Approved by: Keenan Bajwa M.D. on 07/18/2021 at 16:18
== END ==
PROVIDERS: PCP Family Medicine; Referring Provider Physical Medicine & Rehabilitation; Visit Provider Physical Medicine & Rehabilitation
DX: M54.12 Radiculopathy, cervical region (principal); M54.16 Radiculopathy, lumbar region; Z98.890 Other specified postprocedural states; M48.061 Spinal stenosis, lumbar region without neurogenic claudication; M50.323 Other cervical disc degeneration at C6-C7 level; M48.02 Spinal stenosis, cervical region
CPT/HCPCS: 72141; 72158

== ENCOUNTER → 2022-03-27 10:42 | Outpatient (CLI) | payer OTHER, SELFPAY ==
[2022-03-27 11:10] LABS: Appearance Urine UA SL CLOUDY; Bilirubin Urine UA NEGATIVE (NEGATIVE); Color Urine UA ORANGE; Glucose Urine UA NEGATIVE (Negative); Ketones Urine UA NEGATIVE (NEGATIVE); Leukocyte Esterase Urine UA TRACE (NEGATIVE); Nitrite Urine UA NEGATIVE (Negative); Occult Blood Urine UA NEGATIVE (Negative); Protein Urine UA TRACE (Negative); Specific Gravity Urine UA 1.025 (1.000-1.035)
[2022-03-27 11:16] LABS: Bacteria Urine Few (2-10); RBC Urine None Seen (0-5/HPF); Squamous Epithelial Cell Urine 10-30 /HPF (0-5/HPF); WBC Urine 1-5/HPF (0-5/HPF)
[2022-03-27 12:05] LABS: Add Manual Diff / Slide Review NO; Basophils Absolute Auto 0 /uL (0-100); Basophils Percent Auto 0.1 % (0-2); Eosinophils Absolute Auto 0 /uL (0-450); Eosinophils Percent Auto 0.6 % (2-4); Hematocrit 38.3 % (36-46); Hemoglobin 13.2 g/dL (12.0-16.0); Lymphocytes Absolute Auto 1700 /uL (1100-4500); Mean Corpuscular HGB Conc 34.5 % (30-36); Mean Corpuscular Hemoglobin 30.5 PG (26-34); Mean Corpuscular Volume 88.2 fL (80-100); Monocytes Absolute Auto 400 /uL (0-900); Monocytes Percent Auto 5.9 % (3-14); Neutrophils Absolute Auto 3900 /uL (1500-7000); Neutrophils Percent Auto 64.4 % (50-75); Platelet Count 324 X10^3/uL (150-400); Red Blood Cell Count 4.34 X10^6/uL (4.0-5.2); Red Cell Distribution Width 12.9 % (11.6-14.8)
[2022-03-27 12:59] LABS: Hepatitis B Surface Antigen NEGATIVE s/c (NEGATIVE); Rubella Antibody IgG 14.5 IU/mL (>15)
[2022-03-27 13:13] LABS: Hep C Virus Ab w/Reflex Quant NEGATIVE s/c (NEGATIVE)
[2022-03-27 13:14] LABS: HIV 1 & 2 Ab/Ag 4th Gen Combo NEGATIVE (NEGATIVE)
[2022-03-28 13:24] LABS: RPR Screen Non Reactive (Non Reactive); Varicella IgG Antibody 498 index (Immune >165)
== END ==
PROVIDERS: PCP Family Medicine; Referring Provider Obstetrics & Gynecology; Visit Provider Obstetrics & Gynecology
DX: Z34.81 Encounter for supervision of other normal pregnancy, first trimester (principal)
CPT/HCPCS: 36415; 80055; 81003; 81015; 86787; 86803; 86850; 86900; 86901; 87086; 87389

== ENCOUNTER → 2022-04-18 11:01 | Outpatient (CLI) | payer OTHER, SELFPAY ==
[2022-04-18 11:31] LABS: Specimen Label NATERA
[2022-04-18 13:11] LABS: HEMOLYSIS < 15 (0-50)
[2022-04-18 13:16] LABS: Alanine Aminotransferase 9 IU/L (<35); Albumin 4.2 g/dL (3.5-5.0); Albumin Globulin Ratio 1.8 (1.0-2.8); Alkaline Phosphatase 38 U/L (38-126); Aspartate Aminotransferase 17 IU/L (14-36); BUN Creatinine Ratio 14.3 (6-22); Bilirubin Total 0.4 mg/dL (0.2-1.3); Blood Urea Nitrogen 9 mg/dL (7-17); Carbon Dioxide 23 mmol/L (22-32); Chloride 103 mmol/L (98-107); Estimated Glomerular Filt Rate > 60 mL/min (>60); Globulin 2.4 g/dL (1.7-4.1); Glucose 71 mg/dL (70-100); Potassium 4.3 mmol/L (3.4-5.1); Sodium 135 mmol/L (137-145); Total Protein 6.6 g/dL (6.3-8.2); Uric Acid 3.3 mg/dL (2.5-6.2)
[2022-04-18 13:34] LABS: Vitamin D 25 Hydroxy (D3) 66.8 ng/mL (30.0-100.0)
[2022-04-18 13:54] LABS: HEMOLYSIS < 15 (0-50); Iron 158 ug/dL (37-170)
[2022-04-18 14:05] LABS: Percent Iron Saturation 54 % (15-50); Total Iron Binding Capacity 294 ug/dL (265-497); Transferrin 239 mg/dL (206-381)
[2022-04-18 16:23] LABS: Creatinine Urine Random 227.2 mg/dL
[2022-04-18 16:24] LABS: Protein (Total) Urine Random < 5 mg/dL (0-12); Protein Creatinine Ratio Urine 0.02 GRAM/24H
[2022-04-20 07:51] LABS: Folate 19.4 ng/mL (2.76-20.0); Vitamin B12 319 pg/mL (239-931)
== END ==
PROVIDERS: Referring Provider Obstetrics & Gynecology; Visit Provider Obstetrics & Gynecology
DX: O09.299 Supervision of pregnancy with other poor reproductive or obstetric history, unspecified trimester (principal); R11.2 Nausea with vomiting, unspecified; K91.2 Postsurgical malabsorption, not elsewhere classified
CPT/HCPCS: 36415; 80053; 82306; 82570; 82607; 82746; 83540; 83550; 84156; 84550

== ENCOUNTER → 2022-06-12 09:57 | Outpatient (CLI) | payer OTHER, SELFPAY ==
[2022-06-12 14:46] LABS: Urine N gonorrhoeae NOT DETECTED
[2022-06-12 15:59] LABS: Urine Chlamydia NOT DETECTED
== END ==
PROVIDERS: PCP Internal Medicine; Visit Provider Specialist
DX: Z34.82 Encounter for supervision of other normal pregnancy, second trimester (principal); Z3A.19 19 weeks gestation of pregnancy
CPT/HCPCS: 87491; 87591

== ENCOUNTER → 2022-06-12 10:20 | Outpatient (CLI) | payer OTHER, SELFPAY ==
[2022-06-14 20:44] LABS: AFP Value 41.4 ng/mL (.); Gest Age on Col Date 19.6 weeks (.); Insulin Dep Diabetes No (.); OSBR Risk 1IN 10000 (.); Results Report (.); Test Results *Screen Negative* (.)
== END ==
PROVIDERS: PCP Internal Medicine; Referring Provider Specialist; Visit Provider Specialist
DX: Z34.02 Encounter for supervision of normal first pregnancy, second trimester (principal); Z3A.19 19 weeks gestation of pregnancy
CPT/HCPCS: 36415; 82105; 87491; 87591

== ENCOUNTER → 2022-06-18 10:11 | Outpatient (CLI) | payer OTHER, SELFPAY ==
--- NOTE | 2022-06-18 10:12 | DI.US.S_ITS ---
PROCEDURE: US OB >= 14 WEEKS FETUS INDICATIONS: 20 Week Anatomy Scan OUTSIDE/PRIOR DATING DATA: Last menstrual period (LMP): Unknown. LMP-based estimated date of delivery (TJ): Unknown. First dating scan (date and location): Today. Estimated date of delivery (TJ) from first dating scan: 11/02/2022. The calculations are made using the ultrasound TJ of 11/02/2022. TECHNIQUE: Real-time scanning was performed of the fetus, with image documentation and biometric measurements. COMPARISON: None. FINDINGS: General: A single living intrauterine gestation is present. Presentation: Breech. Placenta: Placental position is posterior , without previa. Amniotic fluid index: 13.9 cm, normal range is 5-24 cm. heart rate: 144 beats per minute. Maternal cervical canal: 4.0 cm long. Normal lower limit is 2.5 cm. biometrics: Biparietal diameter: 4.6 cm. 19 weeks 6 days. Head circumference: 17.8 cm. 20 weeks 2 days. Abdominal circumference: 14.4 cm. 19 weeks 5 days. Femur length: 3.4 cm. 20 weeks 4 days. Clinically estimated gestational age: Unknown LMP Composite gestational age from present scan: 20 weeks 3 days Estimated weight and percentile: 333 g. 29th percentile. Anatomic survey: Neuro: Ventricles are non-dilated at less than 10 mm. Cisterna magna is normal at 3-11 mm. Cerebellum is normal in size and morphology. Nuchal skin fold: Normal at less than 6 mm between 14-21 weeks gestational age. Face: Nose and lips, facial profile are normal. Spine: No evidence for spina bifida. Heart: 4-chambered heart is present, with normal ventricular outflow tracts. Diaphragm: Diaphragm is intact. Stomach: Left-sided stomach is present. Kidneys: No hydronephrosis. Normal is less than 5 mm in 2nd trimester, less than 7 mm in 3rd trimester. Cord: 3-vessel cord has orthotopic insertion. Bladder: Normal in size. Extremities: All 4 extremities identified. IMPRESSION: 1. Single living intrauterine . 2. All anatomy was visualized and appears normal. We strive to produce accurate, complete, and clear reports of imaging services. To assist us in improving patient care, this report was composed using standard report templates and voice recognition software. Therefore, it may contain abnormal punctuation, insertions and/or omissions. Occasional wrong-word or sound-alike substitutions may occur. Though we review the report and make efforts to correct it, we do recommend that the report be read carefully in proper context to recognize any text inaccuracies. Dictated by: Quoc Reddy M.D. on 06/18/2022 at 13:53 Approved by: Quoc Reddy M.D. on 06/18/2022 at 13:57
== END ==
PROVIDERS: PCP Internal Medicine; Referring Provider Obstetrics & Gynecology; Visit Provider Obstetrics & Gynecology
DX: Z34.82 Encounter for supervision of other normal pregnancy, second trimester (principal); Z3A.20 20 weeks gestation of pregnancy
CPT/HCPCS: 76811

== ENCOUNTER → 2022-08-09 10:12 | Outpatient (CLI) | payer OTHER, SELFPAY ==
[2022-08-10 16:07] LABS: Candida species Negative (Negative); Gardnerella vaginalis Negative (Negative); Trichomoas vaginalis Negative (Negative)
== END ==
PROVIDERS: PCP Internal Medicine; Visit Provider Physician Assistant Medical
DX: Z34.82 Encounter for supervision of other normal pregnancy, second trimester (principal); N89.8 Other specified noninflammatory disorders of vagina; N94.9 Unspecified condition associated with female genital organs and menstrual cycle; Z3A.27 27 weeks gestation of pregnancy
CPT/HCPCS: 87480; 87510; 87660

== ENCOUNTER → 2022-09-06 19:30 | Outpatient (ROUT) | payer OTHER, SELFPAY ==
[2022-09-08 19:12] LABS: Candida species Negative (Negative); Gardnerella vaginalis Negative (Negative); Trichomoas vaginalis Negative (Negative)
== END ==
PROVIDERS: PCP Internal Medicine; Visit Provider Obstetrics & Gynecology
DX: Z34.83 Encounter for supervision of other normal pregnancy, third trimester (principal); Z3A.31 31 weeks gestation of pregnancy
CPT/HCPCS: 87480; 87510; 87660

== ENCOUNTER → 2022-10-02 07:22 | Outpatient (CLI) | payer OTHER, SELFPAY ==
--- NOTE | 2022-10-02 07:24 | DI.US.S_ITS ---
PROCEDURE: US OB LIMITED INDICATIONS: LGA; EFW OUTSIDE/PRIOR DATING DATA: Last menstrual period (LMP): Unknown. LMP-based estimated date of delivery (TJ): Not available. First dating scan (date and location): June 18, 2022, [facility]. Estimated date of delivery (TJ) from first dating scan: November 02, 2022. TECHNIQUE: Real-time scanning was performed of the fetus, with image documentation and biometric measurements. Biophysical profile was also obtained. COMPARISON: None. FINDINGS: General: A single living intrauterine gestation is present. Presentation: Vertex. Placenta: Placental position is posterior right , without previa. Amniotic fluid index: 18.6 cm, normal range is 5-24 cm. Single deepest vertical pocket is 5.8 cm. heart rate: 136 beats per minute. Maternal cervical canal: Not visualized biometrics: Biparietal diameter: 9.0 cm, 36 weeks, 4 days Head circumference: 3.27 cm, 37 weeks, 1 day Abdominal circumference: 32.8 cm, 36 weeks, 5 days Femur length: 6.7 cm, 34 weeks, 3 days Clinically estimated gestational age: 35 weeks, 4 days Composite gestational age from present scan: 36 weeks, 2 days Estimated weight and percentile: 2856 g, 66% IMPRESSION: 1. Single live intrauterine gestation with a composite gestational age of 36 weeks, 2 days which is concordant with dates by initial scan. We strive to produce accurate, complete, and clear reports of imaging services. To assist us in improving patient care, this report was composed using standard report templates and voice recognition software. Therefore, it may contain abnormal punctuation, insertions and/or omissions. Occasional wrong-word or sound-alike substitutions may occur. Though we review the report and make efforts to correct it, we do recommend that the report be read carefully in proper context to recognize any text inaccuracies. Dictated by: Shanice Bill M.D. on 10/02/2022 at 10:54 Approved by: Shanice Bill M.D. on 10/02/2022 at 11:11
== END ==
PROVIDERS: PCP Internal Medicine; Referring Provider Physician Assistant Medical; Visit Provider Physician Assistant Medical
DX: O09.293 Supervision of pregnancy with other poor reproductive or obstetric history, third trimester (principal); Z3A.36 36 weeks gestation of pregnancy
CPT/HCPCS: 76815

== ENCOUNTER → 2022-10-12 12:13 | Outpatient (CLI) | payer OTHER, SELFPAY ==
[2022-10-13 11:28] LABS: Strep Grp B PCR NEG for Grp B Strep
== END ==
PROVIDERS: PCP Internal Medicine; Visit Provider Obstetrics & Gynecology
DX: Z36.85 Encounter for antenatal screening for Streptococcus B (principal); Z3A.36 36 weeks gestation of pregnancy
CPT/HCPCS: 87653

== ENCOUNTER 2022-10-19 10:36 | Outpatient (CLI) | payer OTHER, SELFPAY | END 2022-10-19 11:26 | disposition home or self-care (01) | LOC: LABOR 11:05 → OB 10-24 09:07 | PROVIDERS: PCP Internal Medicine; Referring Provider Obstetrics & Gynecology; Visit Provider Obstetrics & Gynecology | DX: O26.893 Other specified pregnancy related conditions, third trimester (principal); Z3A.38 38 weeks gestation of pregnancy; W18.30XA Fall on same level, unspecified, initial encounter; Y92.481 Parking lot as the place of occurrence of the external cause | CPT/HCPCS: 59025; G0378; G0379 ==

== ENCOUNTER 2022-10-24 07:11 | Observation (INO) | payer OTHER, SELFPAY ==
[2022-10-24 12:36] LABS: Appearance Urine UA SL CLOUDY; Bilirubin Urine UA NEGATIVE (NEGATIVE); Color Urine UA YELLOW; Glucose Urine UA NEGATIVE (Negative); Ketones Urine UA NEGATIVE (NEGATIVE); Leukocyte Esterase Urine UA TRACE (NEGATIVE); Nitrite Urine UA NEGATIVE (Negative); Occult Blood Urine UA NEGATIVE (Negative); Protein Urine UA NEGATIVE (Negative); Specific Gravity Urine UA 1.015 (1.000-1.035); Urobilinogen Urine UA 0.2 E.U./dL (0.2)
[2022-10-24 12:55] LABS: Amorphous Sediment Urine 2+; Bacteria Urine Few (2-10); Culture Indicated Urine Specimen Cultured; Mucus Urine 1+ (Negative); RBC Urine None Seen (0-5/HPF); Squamous Epithelial Cell Urine 5-10 /HPF (0-5/HPF); WBC Urine 1-5/HPF (0-5/HPF)
== END 2022-10-24 10:55 | disposition home or self-care (01) ==
PROVIDERS: Admitting Provider Obstetrics & Gynecology; PCP Internal Medicine; Referring Provider Obstetrics & Gynecology; Visit Provider Obstetrics & Gynecology
DX: Z34.83 Encounter for supervision of other normal pregnancy, third trimester (principal); Z3A.38 38 weeks gestation of pregnancy
CPT/HCPCS: 59025; 59050; 81001; 87086; 96360; G0378; G0379

== ENCOUNTER 2022-10-26 05:55 | Inpatient (IN) | payer OTHER, SELFPAY ==
--- NOTE | 2022-10-26 | PATH_ITS ---
[facility] Accession Number: [id number] No. of containers..01 Tissue . 01 Material submitted: . fallopian tube - BILATERAL FALLOPIAN TUBES . 01 Diagnosis: Fallopian Tubes, Bilateral Salpingectomy: Two fimbriated fallopian tubes without significant pathologic abnormality. MRV 10/30/2022 1854 Local . 01 Electronically signed: . Charlotte García MD, Pathologist NPI- [id number] . 01 Gross description: . The specimen is received in formalin, labeled with the patient's name, , and bilateral fallopian tubes, and consists of two unoriented fimbriated fallopian tubes measuring 8.9 x 0.8 cm and 6.5 x 1.0 cm, respectively. The longer fallopian tube has congested smooth serosa with no cystic structures identified. Sectioning reveals an unremarkable stellate lumen. The shorter fallopian tube has congested smooth serosa with no cystic structures identified. Sectioning reveals an unremarkable stellate lumen. Funding Specialist sections to include entire fimbriae and cross sections are submitted as follows: A1: Longer fallopian tube. A2: [place] fallopian tube. ([id number]) /R 10/27/2022 1544 Local . 01 Pathologist provided ICD-10: Z30.2 . 01 CPT . 638729 Specimen Comment: A courtesy copy of this report has been sent to [phone] Performed at: 01 [facility] [address] [place] [address], [place], [place] [id number] MD Yonny Horton MD Phone: [phone]
[2022-10-26 06:12] VITALS: BP 106/68
--- NOTE | 2022-10-26 06:16 | PM.OBHP.IH.1 ---
OB HPI Date/Time Date of admission: 10/26/22 Date Patient Seen: 10/26/22 Time Patient Seen: 06:16 History of Present Condition Chief complaint: INPT TJ Calculator Estimated Delivery Date Method Current WG Current Estimate 11/04/22 LMP (Uncertain) 38w 5d Other Estimates 11/02/22 Ultrasound #1 39w 0d Estimated Gestational Age (weeks): 39 : 2 Para: 1 care: good care, initiated at week # (11), number of visits (11) and pounds weight gain (37) Dating criteria OB: LMP confirmed by 1st trimester US Ultrasounds: normal 1st trimester US and normal mid trimester US Obstetrical complications: none Medical complications OB: none Indications Operative indications ( section): previous uterine surgery Preadmission Labs Last OB Lab Results: Blood Type O Positive 03/27/22 10:53 Antibody Screen Negative 03/27/22 10:53 Hematocrit 29.5 % (36-46) L 10/26/22 06:46 Hemoglobin 9.7 g/dL (12.0-16.0) L 10/26/22 06:46 Hepatitis B Surface Antigen Negative s/c (NEGATIVE) 03/27/22 10:53 Hepatitis C Antibody Negative s/c (NEGATIVE) 03/27/22 10:53 Rubella Antibody 14.5 IU/mL (>15) L 03/27/22 10:53 Varicella-Zoster IgG Antibody 498 index (Immune >165) 03/27/22 10:53 Group B Streptococcus (PCR) Neg for grp b strep 10/12/22 12:13 -: Chlamydia screen: negative, Gonorrhea screen: negative and Urine: negative Genetic Screens: Cell-free DNA: Normal and Alpha-fetoprotein: Normal External Labs -: Urine: negative Prior (ies) Past Pregnancies Del. Date GA/Weeks Labor Lgth Wt Sex Route Outcome Anesthesia Place Delv Breastfeed Preg Comp Name 09/03/19 40 10 lb Female live - full term [place], [place] 1 month pre-eclampsia Lonnie Zeng Delivery Date: 09/03/19 Last Updated by: Portia Connell R.N. pre-eclampsia kidney and liver labs in setting of high/normal BP Evaluation Evaluation Baseline heart rate: 145 Variability: Average (6-10) monitor accelerations: Present (Small) Monitor Decelerations: Absent Status: Category ll [facility] Medical History ADHD (~1994) Anxiety (~2018) Autism Cervical spine disease (~2018) Chicken pox Degenerative disc disease Depression (~2018) GERD (gastroesophageal reflux disease) Gum disease Heavy menstrual period (~2001) Infertility Irregular menstrual cycle (~2001) Obesity (BMI 30-39.9) (Unknown) Obstructive sleep apnea (~03/2020) Ovarian cyst (~2001) Painful menstrual periods (~2001) PCOS (polycystic ovarian syndrome) depression Pre-diabetes Preeclampsia Snoring (~2017) Tobacco use disorder Surgical History Anesthesia H/O gastric sleeve H/O microdiscectomy Family History Mother Hypothyroid Pre-diabetes Degenerative disc disease Grandmother Pancreatic cancer Grandfather Testicular cancer Grandmother Breast cancer Father Degenerative disc disease Grandmother Diabetes mellitus Hyperlipidemia Hypertension Grandfather Laryngeal cancer Stroke Social History marital status: number of children: 1 (1 stepchild who lives with his mother in [place]) household members: spouse and children lives independently: Yes housing: other (RV) pets and animals: No education level: college (some college) occupational status: employed (Works from home for [employer]) current occupational exposures/hazards: No wayne/adventist: Mormonism special wayne needs: No travel history: over 6 months ago seatbelt use: never (counseled that she legally needs to do so.) water heater temp set < 120 deg: Yes working smoke detector in home: Yes fire extinguisher in home: Yes carbon monox detector in home: Yes firearms in home: Yes firearms unloaded and locked: Yes do you feel safe at home: Yes Smoking Status: Former smoker Tobacco: How many years used: 19 second hand exposure: Yes ( still smokes) alcohol intake: former (social, not when ) substance use type: marijuana (Used edibles prior to ) during the past year weight has: remained stable well-balanced diet: about half the time daily servings fruits/ve-1 caffeine: Yes Type(s) of exercise: none Meds Home Medications and Allergies Home Medications Medication Instructions Recorded Confirmed Type ondansetron 4 mg disintegrating 4 mg PO Q8H nausea #20 tabs 03/27/22 10/19/22 Rx tablet docusate sodium 100 mg capsule 100 mg PO BID #30 caps 04/02/22 10/19/22 Rx (Colace) polyethylene glycol 3350 17 17 g PO DAILY #850 grams 04/02/22 10/19/22 Rx gram/dose oral powder (Miralax) fluconazole 150 mg tablet 150 mg PO Q3D Yeast infection 2 07/31/22 10/19/22 Rx doses #2 tabs blood sugar diagnostic (FreeStyle #100 ea 09/27/22 10/19/22 Rx Lite Strips) blood-glucose meter (FreeStyle #1 ea 09/27/22 10/19/22 Rx Lite Meter kit) Allergies Allergy/AdvReac Type Severity Reaction Status Date / Time No Known Allergies Allergy Verified 10/19/22 10:20 OB Exam Narrative Exam Narrative: Generally: Patient is sitting up in bed, no acute distress Lungs: Clear to auscultation bilaterally Cardiovascular: Regular rate and rhythm Fundal height: 40 cm Estimated weight: 7-1/2 lb Extremities: No edema Objective Labs Result Diagrams: 10/26/22 06:46 Assessment and Plan Assessment and Plan Assessment and Plan narrative: Assessment: 32-year-old 2 para 1 at an estimated gestational age of 39 weeks with a previous section Desires permanent sterilization Plan: Repeat low-transverse section and bilateral salpingectomy The risks, benefits, and alternatives to the procedure were explained to the patient. The risks including bleeding, infection, injury to the bowel, bladder, or ureters. She understands these risks and agrees to proceed. A full par Q was held and consent form was signed. Time Spent with Patient Total time spent with greater than 50% in coordination of care (as documented) at patient's floor/unit and/or counseling patient:: 15-24 minutes
[2022-10-26] MEDS: LACTATED RINGERS 1,000 ML 100 ML IV ×2 (06:49→09:05)
[2022-10-26 07:08] LABS: Add Manual Diff / Slide Review NO; Basophils Absolute Auto 0 /uL (0-100); Basophils Percent Auto 0.2 % (0-2); Eosinophils Absolute Auto 100 /uL (0-450); Eosinophils Percent Auto 0.7 % (2-4); Hematocrit 29.5 % (36-46); Hemoglobin 9.7 g/dL (12.0-16.0); Lymphocytes Absolute Auto 1900 /uL (1100-4500); Lymphocytes Percent Auto 25.9 % (25-40); Mean Corpuscular HGB Conc 32.9 % (30-36); Mean Corpuscular Hemoglobin 27.1 PG (26-34); Mean Corpuscular Volume 82.3 fL (80-100); Monocytes Absolute Auto 400 /uL (0-900); Monocytes Percent Auto 6.1 % (3-14); Neutrophils Absolute Auto 4900 /uL (1500-7000); Neutrophils Percent Auto 67.1 % (50-75); Platelet Count 282 X10^3/uL (150-400); Red Blood Cell Count 3.59 X10^6/uL (4.0-5.2); Red Cell Distribution Width 13.7 % (11.6-14.8); White Blood Cell Count 7.3 X10^3/uL (4.5-11.0)
--- NOTE | 2022-10-26 07:24 | PM.PREOP ---
Pre-operative Note COVID-19 COVID-19 status: Negative Result date/Date tested (Pos, Neg/Pending): 10/26/22 Criteria for continued procedure: Non-surgical alternatives not available or appropriate per current SOC Interval Note History & Physical reviewed/Exam performed by Physician: Yes Changes to H&P: No H&P completed within 30 days and has changed as indicated here:: 10/26/22
[2022-10-26 07:34] LABS: COVID19 -Nasal RAPID Negative (Negative)
[2022-10-26] MEDS: CEFAZOLIN 2 GM/100 ML PREMIX 100 ML IV (08:04)
[2022-10-26] MEDS: ACETAMINOPHEN IV 1,000 MG/100 ML VIAL 400 MG IV (08:14)
--- NOTE | 2022-10-26 08:20 | SUR.OPER ---
Supine on Padded OR bed, head on pillow, safety belt at thigh, arms secured on padded arm boards at <90 degrees abduction. Bump under right buttock. Legs uncrossed with pillow under knees, gel pad to heels, tape over blanket to lower legs. Pt positioned per direction and supervision of Dr Mahoney.
--- NOTE | 2022-10-26 08:37 | SUR.OPER ---
Viable baby girl delivered at 0833. One minute of 9. Placenta birthed at 0835. Five minute of 9. Cord blood vials x2 and placenta given to OB RN.
--- NOTE | 2022-10-26 09:19 | PM.OBCS.1 ---
Operative Date/Time/Diagnoses Date of procedure: 10/26/22 Time of procedure: 09:19 Pre-op diagnosis: Estimated gestational age of 39 weeks Previous section Desires permanent sterilization Post-op diagnosis: same Procedure & Clinicians Procedure: Repeat low-transverse section and bilateral salpingectomy Same procedure as scheduled: Yes Indications: Estimated gestational age of 39 weeks Desires permanent sterilization Previous section Surgeon: Stephanie Mccloud Yes if Unassisted: No Search Strategist: Tila Ahmadi Reason for Search Strategist: The plant attendant or assistant operator was necessary to retract upon entry into the abdomen and the uterus. She assisted with fundal pressure on delivery of the . She assisted in closure with clipping of suture and retraction. She closed the contralateral fascia. Anesthesia Type: Spinal (With Duramorph) Operative Notes Findings: Live female in the [facility] presentation Normal uterus, tubes, and ovaries Closure Type: primary Specimen(s): cord blood, placenta and tubes/segments of tubes Intraoperative meds administered: Duramorph, Ketorolac and Pitocin Applied: Catheter (To continuous drainage) Estimated Blood Loss (mL): 500 Blood products transfused: none Procedure in detail: The patient was taken to the operating room where she was placed in the seated position. Spinal anesthesia with Duramorph was administered. The patient was then placed in the dorsal supine position with a leftward tilt. She was prepped and draped in the usual sterile fashion. A timeout was performed. After spinal analgesia was found to be adequate, a Pfannenstiel skin incision was made through the previous incision and carried through to the underlying layer fascia. The fascia was nicked in the midline, and the incision extended bilaterally with the Peoples scissors. The superior aspect of the fascial incision was grasped with a Yung clamps, elevated, and the underlying rectus muscles dissected off sharply and bluntly. Attention was then turned to the inferior aspect of this incision which in a similar fashion was grasped with a [place] clamps, elevated, and the underlying rectus muscles dissected off sharply and bluntly. The rectus muscles were in the midline. The peritoneum was identified, grasped between 2 hemostats, and entered sharply with the Metzenbaum scissors. This incision was extended superiorly and inferiorly with good visualization of the bladder. The bladder blade was inserted. The vesicouterine peritoneum was identified, grasped with the pickup, and entered sharply with the Metzenbaum scissors. This incision was extended bilaterally, and the bladder flap was created digitally. The bladder blade was reinserted. The lower uterine segment was incised in a transverse fashion with the scalpel. Upon entering the amniotic sac there was a large amount of clear amniotic fluid. The infant's head was delivered without difficulty. The nose and mouth were suctioned with bulb suction. The remainder of the body delivered without difficulty. The cord was double clamped and cut after one minute. Cord bloods were obtained. The was handed off to waiting RN and RT. The placenta was delivered by expression. The uterus was cleared of all clots and debris. The uterine incision was repaired with #1 chromic in a running interlocking fashion, and a second layer the same suture was used for an imbricating layer. Hemostasis was achieved. The tubes and ovaries were examined and were found to be normal. The left tube was grasped with Garrison's. Using the LigaSure, the mesosalpinx on the left side was cauterized and cut all the way down to the cornua of the uterus. The tube was amputated at the cornua. This was repeated on the patient's right tube. The tubes were sent off for pathology. The gutters were cleared of all clots and debris. The parietal peritoneum was closed using 2-0 Vicryl in a running fashion. The fascia was reapproximated using 0 Vicryl in a running fashion. The subcutaneous layer was copiously irrigated with warm normal saline. 5 simple interrupted sutures of 3-0 Vicryl were placed to reapproximate the subcutaneous layer. The skin was closed with 4-0 Monocryl in a subcuticular fashion. Steri-Strips were placed. An Aquacel dressing was placed. The uterus was expressed of a small amount of old blood. Sponge, lap, and instrument counts were correct x-2. The patient tolerated the procedure well, and was taken to PACU in stable condition. Complications: none Novice Baby 1: Gender: Female Presentation: vertex Position: Left Occiput Anterior Placental Delivery Description: Expressed Cord Vessel Description: 3 Vessels and Clamped/Cut (After 1 minute) score (1 min): 9 score (5 min): 9 weight: 8 lb 3 oz Post-operative Condition: stable Disposition: PACU Aftercare: routine postop
[2022-10-26 09:21] VITALS: BP 103/67; PULSE 76; RESP 16; O2SAT 98
[2022-10-26 09:29] VITALS: BP 115/85; PULSE 87; RESP 16; TEMP 36.4; O2SAT 98
[2022-10-26 09:33] VITALS: BP 124/69; PULSE 72; RESP 16; TEMP 36.4; O2SAT 98
[2022-10-26] MEDS: ONDANSETRON 4 MG/2 ML INJ IV (12:26)
[2022-10-26] MEDS: diphenhydrAMINE 50 MG/ML VIAL 25 MG IV (12:42)
[2022-10-26] MEDS: KETOROLAC 30 MG/ML VIAL IV ×2 (15:16→21:29)
[2022-10-26] MEDS: ACETAMINOPHEN 325 MG TABLET 650 MG PO (21:29)
[2022-10-27] MEDS: KETOROLAC 30 MG/ML VIAL IV (02:48)
[2022-10-27] MEDS: ACETAMINOPHEN 325 MG TABLET 650 MG PO ×2 (02:49→08:32)
[2022-10-27 06:35] LABS: Hematocrit 24.4 % (36-46); Hemoglobin 8.1 g/dL (12.0-16.0)
--- NOTE | 2022-10-27 08:17 | PM.OBDS.1 ---
Discharge Providers Provider Date of admission: 10/26/22 05:55 Discharge Date: 10/27/22 Primary care physician: Reji Lopez MD Consults: 10/26/22 12:29 Consult to Panelboard Operator Routine Comment: Discharge provider: Stephanie Mahoney MD Summary Hospital Course Date Patient Seen: 10/27/22 Time Patient Seen: 08:17 Diagnoses: Estimated gestational age of 39 weeks Desires permanent sterilization Previous section Repeat low-transverse section Bilateral salpingectomy Hospital Course: Patient is a 32-year-old 2 para 2 who presented on October 26, 2022 for a scheduled repeat section and bilateral salpingectomy. She underwent these procedures without complication. Her postoperative course has been unremarkable. Her Bautista catheter was removed on postop day #0. She voided without the catheter. She was ambulating without assistance on postop day #0. She is tolerating a diet. Her pain is well controlled with Tylenol and ibuprofen. She has not needed any narcotic. No nausea or vomiting. She is requesting to go home on postop day #1. Peripartum Data Infant Delivery Method: Section (And bilateral salpingectomy) Procedures: Spinal anesthesia Repeat low-transverse section Bilateral salpingectomy complications: none 1: Gender: Female Disposition of : home Status at Discharge Cognitive/behavioral status at discharge: oriented Functional status at discharge: independent ambulation Overall status at discharge: patient is progressing back to baseline Time Spent with Patient Time attestation: Total time spent providing and/or coordinating discharge services: Time spent: Less than 30 minutes Objective Labs Result Diagrams: 10/27/22 06:12 Labs: Laboratory Results - last 24 hr 10/26/22 10/27/22 06:46 06:12 Hgb 8.1 L Hct 24.4 L Blood Type O Positive Antibody Screen Negative Exam Vital Signs (past 8 hours): Oxygen Delivery Method Room Air Oxygen Flow Rate 98 Narrative Exam Narrative: Generally: Patient is sitting up in bed, holding , no acute distress Lungs: Clear to auscultation bilaterally Cardiovascular: Regular rate and rhythm Fundus: Firm at U -2 Incision: Clean dry and intact with Aquacel dressing Extremities: 1+ edema, negative Homans Discharge Plan Discharge Plan Patient Disposition: Home Provider Discharge Comment: Call with fever, chills, or redness or drainage around the incision Ibuprofen 600 mg every 6 hours as needed Tylenol 650 mg every 6 hours as needed Stool softener until bowels returned to normal Iron supplement, Slow Fe, for the next month Discharge orders & Medications Prescriptions: Continued polyethylene glycol 3350 [Miralax] 17 gram/dose powder 17 g PO DAILY Qty: 850 1RF docusate sodium [Colace] 100 mg capsule 100 mg PO BID Qty: 30 1RF Discontinued ondansetron 4 mg tablet,disintegrating 4 mg PO Q8H Qty: 20 2RF fluconazole 150 mg tablet 150 mg PO Q3D Qty: 2 0RF Rx Instructions: may repeat second dose 72 hrs after first dose if symptoms persist No Action (DME) blood-glucose meter [FreeStyle Lite Meter] Kit See Rx Instructions .Route Qty: 1 0RF Rx Instructions: Use to test blood sugar 4 times daily (DME) FreeStyle Lite Strips Strip See Rx Instructions .Route Qty: 100 1RF Rx Instructions: Use to test blood sugar 4 times daily Follow up/Referrals: Stephanie Mahoney MD [Physician] - 1 Week (My office will call patient to schedule 1 week Aquacel dressing removal) Diet/Activity/Treatments Diet: Regular Activity: No heavy lifting, nothing more than the baby for the first 2 weeks Skin/Wound/Dressing Care Report to your healthcare provider any signs of infection, such as:: chills, fever, increased pain, unusual drainage and unusual redness Dressing: Do not remove Visit Report/Discharge Packet Instructions: DI for Stand Alone Forms: Patient Portal/API Discharge Data Primary Care Provider: Reji Lopez
[2022-10-27] MEDS: IBUPROFEN 600 MG TABLET PO (08:32)
[2022-10-27] MEDS: PRENATAL VIT,CALC/IRON/FOLIC 1 TABLET 1 TAB PO (08:32)
[2022-10-27] MEDS: DOCUSATE 100 MG CAPSULE 200 MG PO (08:33)
[2022-10-27 09:44] VITALS: BP 112/66; PULSE 82; RESP 18; TEMP 36.6
== END 2022-10-27 09:35 | disposition home or self-care (01) | DRG 785 ==
PROVIDERS: Admitting Provider Obstetrics & Gynecology; PCP Internal Medicine; Referring Provider Obstetrics & Gynecology; Visit Provider Obstetrics & Gynecology
PROC: 10D00Z1 Extraction of Products of Conception, Low, Open Approach (ICD-10-PCS; CPT 59514; principal; 2022-10-26 07:45)
DX: O34.211 Maternal care for low transverse scar from previous cesarean delivery (principal); Z3A.39 39 weeks gestation of pregnancy; Z37.0 Single live birth; Z30.2 Encounter for sterilization; Z20.822 Contact with and (suspected) exposure to COVID-19
CPT/HCPCS: 36415; 58611; 59050; 59510; 59514; 85014; 85018; 85025; 86850; 86900; 86901; 87635; C9803; J0131; J0690; J1200; J1885; J2274; J2405; J2590; J2704; J3010

== ENCOUNTER → 2023-03-17 10:59 | Outpatient (CLI) | payer OTHER, SELFPAY ==
--- NOTE | 2023-03-17 11:02 | DI.RAD.S_ITS ---
PROCEDURE: XR TIBIA FUBULA RT 2V INDICATIONS: Right lower leg pain TECHNIQUE: 2 views of the tibia and fibula were acquired. COMPARISON: None. FINDINGS: Bones: No fractures or dislocations. No suspicious bony lesions. Soft tissues: No suspicious soft tissue calcifications or masses. IMPRESSION: No acute fracture. No osseous lesion. If symptoms and/or clinical suspicion for pathology persist, further assessment with repeat, or advanced imaging (e.g., CT, MRI, or bone scan) may be helpful for further assessment. Dictated by: Phyllis Sarabia M.D. on 03/17/2023 at 10:20 Approved by: Phyllis Sarabia M.D. on 03/17/2023 at 10:20
--- NOTE | 2023-03-17 11:02 | DI.RAD.S_ITS ---
PROCEDURE: XR ANKLE RT MIN 3V INDICATIONS: Right lower leg pain TECHNIQUE: 3 views of the ankle were acquired. COMPARISON: None. FINDINGS: Bones: No fractures or dislocations. Ankle mortise is normally aligned. No suspicious bony lesions. Soft tissues: No tibiotalar joint effusion. Achilles tendon appears normal. IMPRESSION: No acute fracture. No osseous lesion. If symptoms and/or clinical suspicion for pathology persist, further assessment with repeat, or advanced imaging (e.g., CT, MRI, or bone scan) may be helpful for further assessment. Dictated by: Phyllis Sarabia M.D. on 03/17/2023 at 10:19 Approved by: Phyllis Sarabia M.D. on 03/17/2023 at 10:20
== END ==
PROVIDERS: PCP Internal Medicine; Referring Provider Nurse Practitioner Family; Visit Provider Nurse Practitioner Family
DX: M79.661 Pain in right lower leg (principal)
CPT/HCPCS: 73590; 73610

== ENCOUNTER → 2023-06-13 16:06 | Outpatient (CLI) | payer OTHER, SELFPAY ==
--- NOTE | 2023-06-13 | DI.US.S_ITS ---
PROCEDURE: US THYROID INDICATIONS: NONTOXIC GOITER TECHNIQUE: Real-time scanning was performed of the thyroid gland, with image documentation. COMPARISON: None. FINDINGS: Right: Thyroid lobe measures 5.5 x 1.4 x 2.6 cm, and is homogeneous in echotexture. Left: Thyroid lobe measures 4.1 x 1.2 x 2.1 cm, and is homogenous in echotexture. Isthmus: 5.0 mm thick. Nodule number: 1 Location: Right mid Size: 1.9 cm. Composition: Solid Echogenicity: Isoechoic Shape: wider than tall. Margins: Smooth Echogenic foci: Internal punctate echogenic foci Total points: 6 ACR TI-RADS category: Moderately suspicious IMPRESSION: Moderately suspicious 1.9 cm right thyroid nodule. Recommend sonographically directed fine-needle aspiration. ACR TI-RADS definitions and recommendations: TI-RADS 1 (benign): 0 points. FNA not needed. TI-RADS 2 (not suspicious): 2 points. FNA not needed. TI-RADS 3 (mildly suspicious): 3 points. * FNA if 2.5 cm or larger, follow up if 1.5 cm or larger (at 1, 3, and 5 years). TI-RADS 4 (moderately suspicious): 4-6 points. * FNA if 1.5 cm or larger, follow up if 1 cm or larger (at 1, 2, 3, and 5 years). TI-RADS 5 (highly suspicious): 7 points or more. * FNA if 1 cm or larger, follow up if 0.5 cm or larger (every year for 5 years). Dictated by: Terence RICHARDSON Interpreted: Chau Pandya MD on 06/13/2023 at 20:28 Transcribed by: ARMANDO on 06/14/2023 at 8:15 Approved by: Chau Pandya M.D. on 06/14/2023 at 11:37
== END ==
PROVIDERS: PCP Internal Medicine; Referring Provider Internal Medicine; Visit Provider Internal Medicine
DX: E04.1 Nontoxic single thyroid nodule (principal); R22.2 Localized swelling, mass and lump, trunk
CPT/HCPCS: 76536

== ENCOUNTER → 2023-06-20 09:48 | Outpatient (CLI) | payer OTHER, SELFPAY ==
--- NOTE | 2023-06-20 | DI.US.S_ITS ---
LIMITED ULTRASOUND OF LEFT BREAST: 06/20/2023 CLINICAL: Left Breast Lump. Comparison is made to exam dated: 06/20/2023 mammogram - [facility]. Color flow and real-time ultrasound of the left breast 9-10 o'clock region were performed. Glynn scale images of the real-time examination were reviewed. No significant abnormalities were seen sonographically in the left breast in the region of the palpable abnormality. IMPRESSION: NEGATIVE There is no sonographic evidence of malignancy. Exam findings were conveyed to the patient. Patient is advised to monitor for significant change. Clinical follow-up as needed. A 5 year screening mammogram is recommended. This exam was interpreted at Station ID: [id number]. Electronically Signed By: Hieu Nielsen M.D. sl[facility]/:06/20/2023 10:42:29 letter sent: Normal Exam Ultrasound BI-RADS: 1 Negative
--- NOTE | 2023-06-20 | DI.MG.S_ITS ---
BILATERAL DIGITAL DIAGNOSTIC MAMMOGRAM 3D/2D: 06/20/2023 CLINICAL: Palpable left breast lump by physician and patient x's 2 months. CBE performed. Baseline exam. No prior exams were available for comparison. There are scattered areas of fibroglandular density in both breasts (category b / 25%-50% glandular tissue). No significant masses, calcifications, or other findings are seen in either breast. IMPRESSION: INCOMPLETE: NEEDS ADDITIONAL IMAGING EVALUATION No mammographic evidence of malignancy. A targeted ultrasound is recommended and will immediately follow. Based on Tyrer-Cuzick model (a risk assessment model), the patient's lifetime risk is 20.8% and her 10 year risk is 1.6%. If a patient has an elevated risk, a more comprehensive evaluation should be considered and/or a referral to a genetic counselor. The [place] [employer], [place] [employer], and NCCN Guidelines advise the consideration of Breast MRI as an adjunct to screening mammography in patients whose Lifetime risk to develop breast cancer is 20% or higher. This exam was interpreted at Station ID: [id number]. NOTE: For mammograms, a report in lay terms will be sent to the patient. Approximately 15% of breast malignancies will not be visualized mammographically. In the management of a palpable breast mass, a negative mammogram must not discourage biopsy of a clinically suspicious lesion. Electronically Signed By: Hieu Nielsen M.D. [facility]/:06/20/2023 10:20:29 ACR BI-RADS Category 0: Incomplete [id number]
== END ==
PROVIDERS: PCP Internal Medicine; Referring Provider Internal Medicine; Visit Provider Internal Medicine
DX: R92.2 Inconclusive mammogram; N63.20 Unspecified lump in the left breast, unspecified quadrant; E04.9 Nontoxic goiter, unspecified
CPT/HCPCS: 76642; 77066; G0279